=== PATIENT | female | born 1995 | race Caucasian/White ===

== ENCOUNTER 2018-05-13 15:41 | Emergency (ER) | payer BC ==
[2018-05-13 16:42] LABS: URINE BLOOD (Dip) POC 3+ (NEGATIVE); URINE GLUCOSE (Dip) POC Negative (NEGATIVE); URINE KETONES (Dip) POC Negative (NEGATIVE); URINE LEUKOCYTE EST (Dip) POC Negative (NEGATIVE); URINE NITRITE (Dip) POC Negative (NEGATIVE); URINE TOTAL PROTEIN POC 1+ (NEGATIVE)
[2018-05-13] MEDS: KETOROLAC 30 MG INJ IV (17:01)
[2018-05-13] MEDS: METOCLOPRAMIDE 10 MG INJ IV (17:01)
[2018-05-13] MEDS: SOD CHLORIDE 0.9% 1,000 ML IV (17:02)
[2018-05-13] MEDS: DIPHENHYDRAMINE 50 MG INJ IV (17:02)
== END 2018-05-13 17:59 | disposition home or self-care (01) ==
LOC: FTE 15:41
DX: R51 Headache (principal); R11.10 Vomiting, unspecified
CPT/HCPCS: 81003; 81025; 96374; 96375; 99284-25